=== PATIENT | female | born 1940 | race Two or more races ===

== ENCOUNTER 2025-04-18 08:27 | Outpatient (CLI) | payer MEDICARE ==
[2025-04-18 11:22] LABS: Estimated GFR - POC 28.0
== END 2025-04-18 08:28 | disposition home or self-care (01) ==
LOC: CSHCT 08:27
PROVIDERS: ATTEND Physician Assistant Medical
DX: K74.60 Unspecified cirrhosis of liver (principal); K76.82 Hepatic encephalopathy; Z53.9 Procedure and treatment not carried out, unspecified reason
CPT/HCPCS: 36415; 82565

== ENCOUNTER 2025-05-15 08:45 | Outpatient (CLI) | payer MEDICARE | END 2025-05-15 08:46 | disposition home or self-care (01) | LOC: CSHULT 08:45 | PROVIDERS: ATTEND Physician Assistant Medical | DX: K74.60 Unspecified cirrhosis of liver (principal) | CPT/HCPCS: 76705; 93976 ==